=== PATIENT | male | born 1985 | race Caucasian/White ===

== ENCOUNTER 2025-03-19 16:09 | Emergency (ER) | payer MEDICAID, OTHER ==
[~2025-03-19] VITALS: Ht 170.2 cm; Wt 70.0 kg
[2025-03-19 16:11] VITALS: TEMP 98.4; O2SAT 98
[2025-03-19] MEDS ORDERED: IBUPROFEN 600MG TABLET PO ONE (19:00)
[2025-03-19] MEDS: LIDOCAINE 5% PATCH TOP SCH (19:34)
[2025-03-19] MEDS: ACETAMINOPHEN 325MG TABLET PO ONE (19:34)
[2025-03-19] MEDS ORDERED: LIDO-53 TP (21:56)
[2025-03-19] MEDS ORDERED: IBUP-1455 MT (21:56)
[2025-03-19] MEDS ORDERED: CYCL10TA21 MT (21:56)
[2025-03-19 22:55] VITALS: BP 143/79; PULSE 61; RESP 16; O2SAT 99
== END 2025-03-19 23:08 | disposition home or self-care (01) ==
LOC: ER 16:09
DX: S16.1XXA Strain of muscle, fascia and tendon at neck level, initial encounter (principal); S20.319A Abrasion of unspecified front wall of thorax, initial encounter; F31.9 Bipolar disorder, unspecified; F20.9 Schizophrenia, unspecified; Y04.0XXA Assault by unarmed brawl or fight, initial encounter; Y93.89 Activity, other specified; Y92.89 Other specified places as the place of occurrence of the external cause; Y99.9 Unspecified external cause status
CPT/HCPCS: 70486; 99284